=== PATIENT | female | born 1955 | race Caucasian/White ===

== ENCOUNTER → 2019-10-17 | Outpatient (CLI) | payer MEDICARE, OTHER | END | disposition home or self-care (01) | LOC: LAB SHORT 11:45 → PLD 11:45 | DX: D48.5 Neoplasm of uncertain behavior of skin (principal) | CPT/HCPCS: 88305 ==

== ENCOUNTER 2020-12-12 06:10 | Day surgery (SDC) | payer MEDICARE, OTHER ==
[~2020-12-12] VITALS: Ht 170.2 cm; Wt 80.1 kg
--- NOTE | 2020-12-12 09:46 | NUR ---
12/12/20 0946 [facility] PT ONE PERSON ASSIST TO CHAIR. PT REPORTS BEING DIZZY AND SLEEPY. PT IS ALSO NAUSEATED. PT MEDICATED FOR NAUSEA ONCE IN CHAIR WITH REPORTED IMPROVEMENT. PT COMPLAINS OF BEING "UNCOMFORTABLE" BUT IS NOT CONFIRMING PAIN. WHEN OFFERED PAIN MEDICINE, PT REFUSING. PT MOANING AT TIMES AND MOVING IN CHAIR. WHEN ASKED AGAIN, PT JUST REPORTS BEING "UNCOMFORTABLE".
== END 2020-12-12 10:35 | disposition home or self-care (01) ==
LOC: ORSCSDS 06:10
PROVIDERS: Surgery
PROC: BF031ZZ Plain Radiography of Gallbladder and Bile Ducts using Low Osmolar Contrast (ICD-10-PCS; principal; 2020-12-12 07:30)
PROC: 0FT44ZZ Resection of Gallbladder, Percutaneous Endoscopic Approach (ICD-10-PCS; principal; 2020-12-12 07:30)
DX: K80.10 Calculus of gallbladder with chronic cholecystitis without obstruction (principal)
CPT/HCPCS: 74300; 88304; C1729; J0690; J1100; J1885; J2250; J2370; J2405; J2704; J2710; J2765; J3010; J7120

== ENCOUNTER 2021-05-06 18:50 | Emergency (ER) | payer MEDICARE ==
[~2021-05-06] VITALS: Ht 170.2 cm; Wt 77.1 kg
[2021-05-06] MEDS ORDERED: Percocet 5-3251 EACH PO (21:20)
== END 2021-05-06 21:35 | disposition home or self-care (01) ==
LOC: ER 18:50
DX: S82.144A Nondisplaced bicondylar fracture of right tibia, initial encounter for closed fracture (principal); W18.30XA Fall on same level, unspecified, initial encounter; Z88.0 Allergy status to penicillin
CPT/HCPCS: 29505; 73562-RT; 99283-25; A9270

== ENCOUNTER → 2023-03-21 | Outpatient (CLI) | payer MEDICARE, OTHER ==
[~2023-03-21] MED LIST: Percocet 5-3251 EACH PO
[2023-03-26 21:09] LABS: CHLAMYDIA TRACHOMATIS, NAA Negative (Negative); HPV APTIMA Negative (Negative)
== END ==
LOC: LAB 15:00 → LAB SHORT 15:00
PROVIDERS: Nurse Practitioner Family
DX: Z12.4 Encounter for screening for malignant neoplasm of cervix (principal)
CPT/HCPCS: 87491; 87591; 87624; 88175

== ENCOUNTER → 2023-10-27 | Outpatient (CLI) | payer MEDICARE, OTHER | LOC: LAB 10-26 09:25 → LAB SHORT 10-26 09:25 → LAB 09:25 | DX: B35.1 Tinea unguium (principal); L60.2 Onychogryphosis | CPT/HCPCS: 88305; 88312 ==